=== PATIENT | male | born 1995 | race Caucasian/White ===

== ENCOUNTER 2024-02-26 14:19 | Emergency (ER) | payer MEDICAID ==
[~2024-02-26] VITALS: Ht 177.8 cm; Wt 113.0 kg
[2024-02-26 14:22] VITALS: O2SAT 100
[2024-02-26 14:41] VITALS: TEMP 98.7
[2024-02-26 17:24] VITALS: BP 159/96; PULSE 82; RESP 18
[2024-02-26] MEDS: KETOROLAC 30MG/ML VIAL IM STA (17:24)
[2024-02-26] MEDS ORDERED: NAPR-681 PO (18:16)
== END 2024-02-26 18:44 | disposition home or self-care (01) ==
LOC: ER 14:19
DX: M79.672 Pain in left foot (principal); Z90.49 Acquired absence of other specified parts of digestive tract
CPT/HCPCS: 73630; 99283; J1885; Z7610

== ENCOUNTER 2024-03-20 11:08 | Emergency (ER) | payer MEDICAID ==
[~2024-03-20] VITALS: Ht 165.1 cm; Wt 100.0 kg
[~2024-03-20 11:08] MED LIST: NAPR-681 PO
[2024-03-20 11:20] VITALS: O2SAT 97
[2024-03-20] MEDS ORDERED: NYST15CR37 TP (12:40)
[2024-03-20 12:47] VITALS: BP 127/91; PULSE 89; RESP 17; TEMP 36.89184; O2SAT 96
== END 2024-03-20 12:48 | disposition home or self-care (01) ==
LOC: ER 11:08
DX: L30.9 Dermatitis, unspecified (principal)
CPT/HCPCS: 99283

== ENCOUNTER 2024-08-12 12:42 | Emergency (ER) | payer MEDICAID ==
[~2024-08-12] VITALS: Ht 175.3 cm; Wt 103.0 kg
[~2024-08-12 12:42] MED LIST changes: +NYST15CR37 TP
[2024-08-12 13:00] VITALS: O2SAT 97
[2024-08-12 15:10] LABS: BASOPHILS % 0.7 % (0.0-2.0); EOSINOPHILS % 3.5 % (0.0-5.0); HEMATOCRIT. 47.3 % (42.0-52.0); HEMOGLOBIN. 15.8 g/dL (14.0-18.0); LYMPHOCYTES % 43.6 % (20.0-50.0); MEAN CORPUSCULAR HEMOGLOBIN 28.7 pg (28.0-32.0); MEAN CORPUSCULAR HGB CONC 33.3 g/dL (31.0-37.0); MEAN CORPUSCULAR VOLUME 86.1 fL (80.0-94.0); MEAN PLATELET VOLUME 9.1 fl (7.4-10.4); MONOCYTES % 8.5 % (2.0-8.0); NEUTROPHILS % 43.7 % (40.0-76.0); PLATELET 308 x1000/uL (130-400); RED CELL DISTRIBUTION WIDTH 12.4 % (11.6-14.6); WHITE BLOOD COUNT 9.1 x1000/uL (4.5-11.0)
[2024-08-12 15:15] LABS: CHLORIDE 102 mEq/L (98-107); POTASSIUM 3.7 mEq/L (3.5-5.1); SODIUM 138 mEq/L (136-145)
[2024-08-12 15:16] LABS: CARBON DIOXIDE 27 mEq/L (21-32)
[2024-08-12 15:17] LABS: CALCIUM 9.7 mg/dL (8.7-10.4)
[2024-08-12 15:21] LABS: CREATININE 0.9 mg/dL (0.6-1.3); GLUCOSE 99 mg/dL (70-105); UREA NITROGEN BLOOD 12 mg/dL (9-23)
[2024-08-12] MEDS ORDERED: OFLO5DRO4 LEFT EAR (16:25)
[2024-08-12 16:47] VITALS: BP 139/85; PULSE 90; RESP 18; TEMP 37.1; O2SAT 98
[2024-08-12] MEDS ORDERED: IOHEXOL-300 100 ML BOTTLE ONE (23:29)
== END 2024-08-12 16:48 | disposition home or self-care (01) ==
LOC: ER 13:03
DX: H60.91 Unspecified otitis externa, right ear (principal); Z90.49 Acquired absence of other specified parts of digestive tract; Z79.899 Other long term (current) drug therapy
CPT/HCPCS: 99285; 70487; 80048; 85025; 36415; 70491; Q9967